=== PATIENT | male | born 1995 | race Caucasian/White ===

== ENCOUNTER 2017-07-26 09:54 | Emergency (ER) | payer SELFPAY ==
[~2017-07-26] VITALS: Ht 180.3 cm; Wt 63.5 kg
[2017-07-26 10:10] VITALS: BP 113/71
[2017-07-26] MEDS ORDERED: cefTRIAXone SOD 1,000 MG VL IM ONE (12:15)
[2017-07-26] MEDS ORDERED: methylPREDNISolone SOD SUCC 125 MG/2 ML VL IM ONE (12:15)
== END 2017-07-26 12:37 | disposition home or self-care (01) ==
LOC: ER 09:54
DX: J03.00 Acute streptococcal tonsillitis, unspecified (principal)
CPT/HCPCS: 96372; 99284; J0696; J2930